=== PATIENT | female | born 1985 | race Two or more races ===

== ENCOUNTER 2021-01-02 08:28 | Outpatient (CLI) | payer OTHER ==
[~2021-01-02] VITALS: Ht 154.9 cm; Wt 85.3 kg
[2021-01-02] VITALS (7 sets, daily range): BP systolic 108–119; BP diastolic 57–70
[2021-01-02 09:09] LABS: BASO # 0.1 x10^3/uL (0.0-0.2); BASO % 1 % (0-3); EOS # 0.3 x10^3/uL (0.0-0.7); EOS % 4 % (0-3); HEMATOCRIT 43.1 % (36.0-47.0); HEMOGLOBIN 14.8 g/dL (12.0-15.5); LYMPH # 2.7 x10^3/uL (1.0-4.8); LYMPH % 33 % (24-48); MEAN CORPUSCULAR HEMOGLOBIN 29 pg (25-35); MEAN CORPUSCULAR HGB CONC 35 g/dL (31-37); MEAN CORPUSCULAR VOLUME 84 fL (79-100); MONO # 0.5 x10^3/uL (0.0-1.1); MONO % 6 % (0-9); NEUT # 4.6 x10^3/uL (1.8-7.7); NEUT % 56 % (31-73); PLATELET COUNT 277 x10^3/uL (140-400); RED BLOOD COUNT 5.13 x10^6/uL (3.50-5.40); RED CELL DISTRIBUTION WIDTH 13.3 % (11.5-14.5); WHITE BLOOD COUNT 8.1 x10^3/uL (4.0-11.0)
[2021-01-02 09:14] LABS: CALCIUM 8.5 mg/dL (8.5-10.1); CREATININE 0.9 mg/dL (0.6-1.0); GFR 71.7; POTASSIUM 4.1 mmol/L (3.5-5.1)
[2021-01-02 09:16] LABS: PROTHROMBIN TIME PATIENT 14.8 SEC (11.7-14.0)
[2021-01-02 10:11] LABS: PREG TEST PT QUAL NEGATIVE (NEG)
[2021-01-02] MEDS ORDERED: ESCITALOPRAM OX10 MG PO (10:13)
[2021-01-02] MEDS ORDERED: CETI10TA74 PO (10:13)
[2021-01-02] MEDS ORDERED: LIDOCAINE WITH 8.4% SOD BICARB 3 ML DISP.SYRIN. ONE (10:45)
[2021-01-02] MEDS ORDERED: LIDOCAINE WITH 8.4% SOD BICARB 3 ML DISP.SYRIN. INJ ONE (11:15)
--- NOTE | 2021-01-02 12:15 | NUR ---
Discharge Note: JUAN JULIO Discharge instructions and discharge home medications reviewed with Patient and a copy given. All questions have been answered and understanding verbalized. The following instructions and handouts were given: fine needle aspiration Discontinued lines and drains: Peripheral IV intact. Patient discharged to Home or Self Care withSpousevia Ambulated
--- NOTE | 2021-01-02 14:51 | RAD ---
Procedure: Fine-needle aspiration of a large left thyroid nodule and core biopsy of left cervical lymph node. Clinical Indication: Adult female with large left thyroid nodule and multiple prominent left cervical lymph nodes. Sedation: Local anesthesia was used for this procedure. Antibiotics: None Sterility: The procedure was performed in its entirety using appropriate elements of sterile technique. Consent: The procedure was explained in its entirety to the patient or the patients designated risk control field representative by a member of the treatment team, including a discussion of the risks, benefits and commonly accepted alternatives to the procedure, as well as the expected consequences of no therapy whatsoever. Discussion of the risks included, but was not limited to, those that are most frequent and those that are rare but possibly severe or life-threatening, as well as the possibility of unforeseen complications. Technique and Findings: Following informed consent, the patient was prepped and draped in usual sterile fashion. Ultrasound interrogation of the thyroid confirmed a large thyroid nodule occupying most of the left gland. 1% lidocaine was used to achieve local anesthesia. A small dermatotomy was made. Under ultrasound guidance, a 25-gauge needle was used to perform fine-needle aspiration, with the specimen. By the on-site ultrasound technologist. A total of 3 separate fine needle passes were performed. The area of the soft tissues of the left neck above the thyroid gland were then interrogated with ultrasound, and there are a few persistent morphologically abnormal small anterior cervical chain lymph nodes. The most prominent of these was selected for biopsy. 1% lidocaine was used to achieve local anesthesia over secondary. A second small dermatotomy was made. A 20-gauge core biopsy needle was then advanced through the dermatotomy and 4 core needle biopsy passes were performed using ultrasound guidance, with the specimens preserved in formalin save for the final specimen which was preserved in RPMI. Hemostasis was achieved readily following removal of the needle. Complications: No immediate Impression: 1. Ultrasound-guided fine-needle aspiration of a dominant left thyroid nodule as described. 2. Ultrasound-guided core needle biopsy of an abnormal appearing left cervical lymph node.
--- NOTE | 2021-01-07 18:09 | PATHOLOGY ---
[facility] Accession Number: [id number] . 01 Material submitted: . thyroid gland - FNA LEFT THYROID NODULE SUPERIOR. Modifiers: left, superior . 01 Clinical history: . THYROID NODULE LFT LYMP FNA LT NECK MASS/LN FNA LT THYROID NODULE - SUPERIOR 4.7 X 2.5 X 3.1 (PHN 21-52) . 02 Diagnosis: Segments of lymph node, fibrous tissue, and skin, left neck mass/lymph node fine needle biopsy: - No significant pathologic abnormalities. See comment. (JPM:aston; 01/07/2021) MBR 01/07/2021 1708 Local . 02 Comment: Sections of the left neck mass/lymph node fine needle biopsy reveal several small segments of lymph node and fibrous tissue and a minute segment of skin. The segments of lymph node reveal a predominance of small lymphocytes having round hyperchromatic nuclei. There is an occasional plasma cell. There are focal sinus histiocytes and recent hemorrhage. There is no evidence of atypical large cell proliferation. There is no evidence of metastatic carcinoma. . A portion of the specimen submitted for flow cytometric analysis has a viability of 94.7%. A limited flow cytometry panel is performed due to the low cellular yield. Lymphocytes comprise 98.1% of total cells. T-cells comprise 85% of lymphoid cells and show a CD4/CD8 ratio of 5.8. Mature B-cells comprise 13% of lymphoid cells and are polyclonal with a kappa:lambda ratio of 1.5. There is no flow immunophenotypic evidence of a lymphoproliferative disorder. . To confirm flow cytometric findings and characterize the target cells in a tissue architectural context, a limited panel of immunoperoxidase stains is obtained on block A1 and yields the following results: . AE1/AE3: Lymphoid tissue negative for metastatic carcinoma. CD20: Subpopulation of lymphocytes within lymphoid tissue positive. CD3: Subpopulation of lymphocytes positive complimentary to CD20 positive B-cells. Cyclin D1: Small lymphocytes negative. . The morphologic and immunophenotypic findings are supportive of the interpretation of lymphoid tissue showing no significant pathologic abnormalities and no evidence of metastatic carcinoma. However, I would caution that the sample is comprised of only a few minute segments of lymphoid tissue such that I cannot exclude a focal lesion elsewhere within the lymph node. . (JPM:community services officer; 01/07/2021) . . Special stains performed: Immunoperoxidase stains for CD20, CD3, cyclin D1 and AE1/AE3 on A1. . 02 Electronically signed: . Carlos James MD, Pathologist NPI- [id number] . 01 Gross description: . The specimen is received in formalin, labeled "Edilma Connelly". No source is listed on the container. The source is listed on the requisition as, "left neck mass/lymph node". Received are several minute fragments of pale engel tissue measuring 0.2 x 0.2 x 0.1 cm in aggregate dimensions. The specimen is filtered and entirely submitted in cassette A1. (CAA; 01/02/2021) QAC/QAC 01/02/2021 1736 Local . 02 Pathologist provided ICD-10: E04.1 . 02 CPT . 178566, M87693, U89751 Specimen Comment: A courtesy copy of this report has been sent to [phone], [phone] Specimen Comment: [id number], Specimen Comment: Report sent to ,DR DOWELL / DR WOODSON Specimen Comment: A duplicate report has been generated due to demographic updates. Performed at: 01 [facility] [address] [place] [address], [place] [id number] MD Vladislav Peters MD Phone: [phone] Performed at: 02 [facility] [address] [place], [place] [id number] MD Carlos James MD Phone: [phone]
== END 2021-01-02 12:17 | disposition home or self-care (01) ==
LOC: INTRAD 08:28
PROVIDERS: ATTEND Surgery
DX: E04.1 Nontoxic single thyroid nodule (principal); F32.9 Major depressive disorder, single episode, unspecified; Z79.899 Other long term (current) drug therapy; Z98.890 Other specified postprocedural states
CPT/HCPCS: 10005; 36415; 38505; 76942; 80048; 84703; 85025; 85610; 88184; 88185; J3490; 60100